=== PATIENT | female | born 1985 | race Caucasian/White ===

== ENCOUNTER 2017-05-07 22:10 | Emergency (ER) | payer MEDICAID ==
[2017-05-07 22:22] LABS: URINE APPEARANCE CLEAR; URINE BILIRUBIN NEGATIVE (NEGATIVE); URINE BLOOD TRACE-I (NEGATIVE); URINE COLOR YELLOW; URINE GLUCOSE (UA) NEGATIVE (NEGATIVE); URINE KETONE NEGATIVE (NEGATIVE); URINE LEUKOCYTE ESTERASE NEGATIVE (NEGATIVE); URINE NITRITE NEGATIVE (NEGATIVE); URINE PROTEIN NEGATIVE (NEGATIVE); URINE UROBILINOGEN 0.2 E.U./dL (0.20 - 1.00)
[2017-05-07 22:27] LABS: URINE AMORPHOUS SEDIMENT 1+; URINE BACTERIA NONE SEEN; URINE EPITHELIAL CELLS 0 - 2 (FEW); URINE RBC 0 - 2 (NONE SEEN); URINE WBC 0 - 2 (0-2/hpf)
[2017-05-07 22:28] LABS: HCG,QUALITATIVE URINE NEGATIVE (NEGATIVE)
[2017-05-07] MEDS ORDERED: KETOROLAC 60 MG/2 ML VIAL IM STA (22:31)
--- NOTE | 2017-05-07 22:37 | Emergency Department Record ---
History of Present Illness - General Chief complaint: Flank Pain Stated complaint: FLANK PAIN,POSSIBLE UTI Time Seen by Provider: 05/07/17 22:28 Source: Patient Mode of Arrival: Ambulatory Limitations: No limitations - History of Present Illness Initial comments: 31 yo female presents to ED for evaluation of right sided flank pain symptoms that began tonight. Patient denies fevers, chills, or dysuria symptoms, denies hematuria or previous kidney stones. Patient does reports a significant history for kidney infections that present with similar symptoms (sudden onset flank pain). Patient reports previous tubal ligation and ectopic . Onset/Timin -: Days(s) Radiation: R flank Severity scale (1-10): 9 Quality: Aching Consistency: Constant Improves with: None Worsens with: None Patient : No Associated Symptoms: Denies other symptoms - Related Data Sexually active: No Home Medications Medication Instructions Recorded Confirmed Last Taken No Home Med [NO HOME MEDS] 05/07/17 05/07/17 Unknown Allergies Allergy/AdvReac Type Severity Reaction Status Date / Time No Known Drug Allergies Allergy Verified 05/07/17 22:19 Travel Screening - Travel/Exposure Within Last 30 Days Have you traveled within the last 30 days?: No Review of Systems Constitutional: Denies: Chills, Fever, Malaise, Night sweats Eyes: Denies: Eye discharge, Eye pain ENT: Denies: Congestion, Ear pain, Epistaxis Respiratory: Denies: Cough, Dyspnea Cardiovascular: Denies: Chest pain, Dyspnea on exertion Endocrine: Denies: Fatigue, Heat or cold intolerance Gastrointestinal: Denies: Abdominal pain, Nausea, Vomiting Genitourinary: Denies: Dysuria, Hematuria, Incontinence, Retention Musculoskeletal: Reports: Back pain. Denies: Arthralgia, Gout, Joint swelling Skin: Denies: Bruising, Change in color Neurological: Denies: Abnormal gait, Confusion, Seizure Psychiatric: Denies: Anxiety Hematological/Lymphatic: Denies: Anemia, Blood Clots Past Medical History - SOCIAL HISTORY Smoking Status: Current every day smoker Alcohol Use: Occasional Drug Use: None - RESPIRATORY Hx Respiratory Disorders: No - CARDIOVASCULAR Hx Cardio Disorders: No - NEURO Hx Neuro Disorders: No - GI Hx GI Disorders: No - Hx Genitourinary Disorders: Yes Hx UTI: Yes (hx) - ENDOCRINE Hx Endocrine Disorders: No - MUSCULOSKELETAL Hx Musculoskeletal Disorders: No - PSYCH Hx Psych Problems: No - HEMATOLOGY/ONCOLOGY Hx Hematology/Oncology Disorders: No Family Medical History Any Significant Family History?: No Physical Exam - General General Appearance: Alert, Oriented x3, Cooperative, Moderate distress Limitations: No limitations - Head Head exam: Atraumatic, Normocephalic, Normal inspection Head exam detail: negative: Abrasion, Contusion, Gomez's sign, General tenderness, Hematoma, Laceration - Eye Eye exam: Normal appearance. negative: Conjunctival injection, Periorbital swelling, Periorbital tenderness, Scleral icterus - ENT Ear exam: negative: Auricular hematoma, Auricular trauma Nasal Exam: negative: Active bleeding, Discharge, Dried blood, Foreign body Mouth exam: negative: Drooling, Laceration, Muffled voice, Tongue elevation - Neck Neck exam: Normal inspection. negative: Meningismus, Tenderness - Respiratory Respiratory exam: Normal lung sounds bilaterally. negative: Rales, Respiratory distress, Rhonchi, Stridor - Cardiovascular Cardiovascular Exam: Regular rate, Normal rhythm, Normal heart sounds - GI/Abdominal GI/Abdominal exam: Soft. negative: Rebound, Rigid, Tenderness - Rectal Rectal exam: Deferred - exam: Deferred - Extremities Extremities exam: Normal inspection. negative: Pedal edema, Tenderness - Back Back exam: Reports: CVA tenderness (R), Other (numerpous tattoos, no rash noted. ). Denies: Paraspinal tenderness, Rash noted - Neurological Neurological exam: Alert, Normal gait, Oriented X3 - Psychiatric Psychiatric exam: Normal affect, Normal mood - Skin Skin exam: Normal color. negative: Abrasion Type of lesion: negative: abrasion Course Vital Signs 05/07/17 22:16 Temperature 98.0 F Pulse Rate 68 Respiratory 18 Rate Blood Pressure 119/70 Pulse Ox 100 - Reevaluation(s) Reevaluation #1: 05/07/17 22:35 UA reviewed and appears negative for infection. After discussion with the patient, will obtain CT imaging to exclude ureteralithiasis and administer Toradol IM, declines IV and laboratory studies at this time. Reevaluation #2: 05/07/17 23:21 CT Abdomen and Pelvis: 4.0 cm right ovarian cyst Nephrolithiasis, no ureteral caculi identified. Patient was updated on all results, reports that her pain symptoms are improved , and is in agreement with instructions to follow-up with her bone drier (Dr. Us in [place]) in 3-5 days. Patient appears stable for discharge at this time. Medical Decision Making - Lab Data Lab Results 05/07/17 Range/Units 22:24 Urine Color Yellow Urine Appearance Clear Urine pH 7.5 (5.0-8.0) Ur Specific [place] 1.020 (1.002-1.030) Urine Protein Negative (NEGATIVE) Urine Glucose (UA) Negative (NEGATIVE) Urine Ketones Negative (NEGATIVE) Urine Blood Trace-i (NEGATIVE) Urine Nitrite Negative (NEGATIVE) Urine Bilirubin Negative (NEGATIVE) Urine Urobilinogen 0.2 (0.20 - 1.00) E.U./dL Ur Leukocyte Esterase Negative (NEGATIVE) Urine RBC 0 - 2 (NONE SEEN) Urine WBC 0 - 2 (0-2/hpf) Ur Epithelial Cells 0 - 2 (FEW) Amorphous Sediment 1+ Urine Bacteria None seen Urine HCG, Qual Negative (NEGATIVE) Disposition Disposition: Discharge Clinical Impression: Ovarian cyst Qualifiers: Laterality: right Qualified Code(s): N83.201 - Unspecified ovarian cyst, right side Disposition: Home, Self-Care Condition: (2) Stable Instructions: Ovarian Cyst (ED) Additional Instructions: Return to ED if your symptoms worsen or if you have any concerns. Ibuprofen as directed. Follow-up with Dr. Us in 3-5 days as directed. Forms: Patient Portal Access Time of Disposition: 23:25 Quality - Quality Measures Quality Measures: N/A - Blood Pressure Screening Does Patient Have Any of the Following: No Blood Pressure Classification: Normal BP Reading Systolic Measurement: 119 Diastolic Measurement: 70 Screening for High Blood Pressure: < Normal BP, F/U Not Required > [G8783]
[2017-05-07] MEDS ORDERED: IBUPROFEN 600 MG TABLET PO ONE (23:20)
[2017-05-07] MEDS ORDERED: ONDANSETRON 4 MG ODT TABLET SL ONE (23:31)
--- NOTE | 2017-05-08 14:40 | CT SCAN REPORT ---
EXAM: CT OF THE ABDOMEN AND PELVIS WITHOUT CONTRAST HISTORY: LEFT FLANK PAIN. HISTORY OF KIDNEY INFECTION. TECHNIQUE: Helical CT examination of the abdomen and pelvis was performed without oral or intravenous contrast administration for the express purpose of evaluating the renal collecting systems for obstructing calculi. Lack of oral and IV contrast utilization limits evaluation of the bowel and solid viscera respectively. FINDINGS: There are several small nodules within the right lower lobe and a couple within the left lower lobe. The largest nodule in the right lower lobe measures approximately 3 mm. The nodules within the left lower lobe are somewhat ground glass in appearance with that in the lateral left lower lobe measuring 2.8 mm as seen on image number 3 of 108 and that in the posterior lateral left lower lobe as seen on image 10 measuring 3.8 mm. The lung bases are otherwise clear and there is no pleural or pericardial effusion. The heart is not enlarged. The liver, spleen, pancreas, and adrenal glands are normal in appearance to the extent visualized. The gallbladder is contracted limiting its evaluation. No calcified gallstone, gross gallbladder wall thickening, pericholecystic fluid or biliary ductal dilatation is seen. The kidneys are normal in size, position, and are smoothly marginated. There are a couple nonobstructing calculi within the left kidney at the mid level measuring approximately 2-3 mm each. A single tiny 1-2 mm nonobstructing calculus in the upper pole of the right kidney is also demonstrated. No other nephrolithiasis nor renal mass. The renal collecting systems are nondilated. No suspicious calcification noted along the expected course of either ureter. No intrinsic urinary bladder abnormality is seen though evaluation is somewhat limited by incomplete distention. There is a well circumscribed cystic structure within the right adnexa measuring 3.1 x 3.9 cm. This has fluid density. A functional ovarian cyst is the most likely etiology. If clinically warranted, this could be further evaluated with pelvic sonography. No other evidence of pelvic mass nor lymphadenopathy. The uterus is in the midline. No gross bowel dilatation nor bowel wall thickening. There is a moderate amount of stool within the colon. The appendix is visualized and normal in appearance. No free intraperitoneal air. The abdominal wall is unremarkable. No lytic or blastic bone lesion. IMPRESSION: 1. BILATERAL NEPHROLITHIASIS WITHOUT OBSTRUCTIVE UROPATHY. 2. CYSTIC STRUCTURE WITHIN THE RIGHT ADNEXA MEASURING 3.9 CM IN MAXIMUM DIAMETER. A FUNCTIONAL OVARIAN CYST IS THE MOST LIKELY ETIOLOGY. FURTHER EVALUATION WITH PELVIC SONOGRAPHY MAY BE OF BENEFIT. 3. THERE ARE SEVERAL SMALL NONCALCIFIED NODULES WITHIN THE RIGHT LUNG AND TWO WITHIN THE LEFT LUNG. THESE ARE NONSPECIFIC, BUT ARE LIKELY POST INFLAMMATORY. IN THE ABSENCE OF A KNOWN MALIGNANT PRIMARY TUMOR AND ABSENCE OF KNOWN LIVER DISEASE, NO FURTHER EVALUATION IS NECESSARY. OTHERWISE, FOLLOW-UP CT OF THE CHEST IN TWELVE MONTHS WOULD BE RECOMMENDED. JOB NUMBER: [id number] MTDD
== END 2017-05-07 23:37 | disposition home or self-care (01) ==
LOC: EDBD 22:10 → ER 22:10
DX: N83.201 Unspecified ovarian cyst, right side (principal); R91.8 Other nonspecific abnormal finding of lung field
CPT/HCPCS: 74176; 81001; 81025; 96372; 99283; 99284; J1885